=== PATIENT | female | born 1980 | race Caucasian/White ===

== ENCOUNTER 2019-12-14 08:23 | Outpatient (CLI) | payer OTHER ==
--- NOTE | 2019-12-14 11:23 | MRI ---
MRI CERVICAL SPINE WITHOUT CONTRAST: Date: 12/14/2019 INDICATION: Neck pain. Upper extremity weakness. FINDINGS: The cervical vertebra maintain normal height and alignment. The disc spaces are preserved. Vertebral body signal is normal. No evidence of significant disc bulge or disc protrusion at any of the cervical levels. There is no e vidence of central canal or foraminal stenosis. The cervical cord signal appears normal on T2 sequences. IMPRESSION: Unremarkable MRI of cervical spine. POS: OFF
== END 2019-12-14 08:24 | disposition home or self-care (01) ==
LOC: BICMRI 08:23
PROVIDERS: ATTEND Psychiatry & Neurology Neurology
DX: R53.1 Weakness (principal)
CPT/HCPCS: 72141

== ENCOUNTER 2023-03-15 12:17 | Inpatient (IN) | payer BC, MEDICARE ==
[2023-03-15] MEDS ORDERED: Magnesium 2 GM/50 ML BAG (IN WATER) ONE (12:45)
[2023-03-15] MEDS ORDERED: methylPREDNISolone Sod Succ/PF 125 MG/2 ML VIAL ONE (12:45)
[2023-03-15 13:05] LABS: Actual Bicarbonate (HCO3v) 33.5 mEq/L (22-28); Analyzer IN Cardio ER; Base Excess 6.9 mEq/L (-2.0 to +3.0); Calcium, Ionized (venous) 1.13 mmol/L (1.16-1.32); Chloride (VBG) 93 mmol/L (98-106); Hematocrit-VBG 35 % (36.0-47.0); Hemoglobin (Hb) 11.9 g/dL (11.7-15.5); Potassium (VBG) 5.53 mmol/L (3.70-5.30); Sodium 134 mmol/L (133-146); pH (venous) 7.382 (7.32-7.43)
[2023-03-15] MEDS ORDERED: LORazepam 2 MG/ML SYR.(CARPUJECT) ONE (13:09)
[2023-03-15] MEDS ORDERED: Albuterol 2.5 MG (0.5 mL) NEB ONE (13:11)
[2023-03-15] MEDS ORDERED: Albuterol 2.5 MG (3 mL) NEB ONE (13:12)
[2023-03-15] MEDS ORDERED: Ipratropium Bromide 2.5 ml Neb ONE (13:12)
[2023-03-15 13:21] LABS: #Basophils 0.1 thou/uL (0.0-0.2); #Monocytes 1.2 thou/uL (0.11-0.59); #Neutrophils 16.4 thou/uL (1.40-6.50); %Basophils 0.3 % (0.0-1.0); %Lymphocytes 6.9 % (21.0-51.0); %Monocytes 6.1 % (0.0-10.0); %Neutrophils 84.4 % (42.0-75.0); Hemoglobin 11.7 g/dL (12.0-16.0); Mean Corpuscular HGB CONC 32.5 g/dL (32.0-36.0); Mean Corpuscular Hemoglobin 30.9 pg (27.0-31.0); Mean Platelet Volume 11.9 fL (7.4-10.4); Platelet Count 304 10x3/uL (130-400); RBC Distribution Width 13.3 % (11.5-14.5); Red Blood Cell (RBC) Count 3.79 mill/uL (4.20-5.40); White Blood Cell (WBC) Count 19.5 10x3/uL (4.8-10.8)
[2023-03-15 13:49] LABS: ALT (SGPT) 23 U/L (8-55); AST (SGOT) 23 U/L (5-34); Albumin 3.8 g/dL (3.5-5.0); Alkaline Phosphatase 85 U/L (40-110); Anion Gap 13 mmol/L (10-20); BUN (Urea Nitrogen) 20 mg/dL (7.0-18.7); Bilirubin, Total 0.6 mg/dL (0.2-1.2); Calc. Creatinine Clearance 0 mL/min (70-130); Calcium 9.6 mg/dL (7.8-10.44); Carbon Dioxide 33 mmol/L (22-29); Chloride 94 mmol/L (98-107); Estimated GFR 120; Globulin 3.8 g/dL (2.4-3.5); Glucose 201 mg/dL (70-105); Lipase 14 U/L (8-78); Magnesium 1.9 mg/dL (1.6-2.6); Potassium 4.5 mmol/L (3.5-5.1); Protein, Total 7.6 g/dL (6.0-8.3); Sodium 135 mmol/L (136-145)
[2023-03-15 13:53] LABS: Troponin I 0.014 ng/mL (< 0.028)
[2023-03-15] MEDS ORDERED: Cefepime 2 GM VIAL ONE (14:23)
[2023-03-15] MEDS ORDERED: Sodium Chloride 0.9% 100 ML ONE (14:24)
[2023-03-15] MEDS ORDERED: Bisacodyl 5 MG TAB PO PRN (16:13)
[2023-03-15] MEDS ORDERED: Acetaminophen 650 MG Suppository PR PRN (16:13)
[2023-03-15] MEDS ORDERED: Acetaminophen 325 MG TAB PO PRN (16:13)
[2023-03-15] MEDS ORDERED: Ondansetron PF 4 MG/2 ML Vial IVP PRN (16:13)
[2023-03-15 16:25] VITALS: BMI 21.2
[2023-03-15] MEDS: Baclofen 10 MG TAB PER TUBE SCH (21:33)
[2023-03-15] MEDS: Cefepime 2 GM in Sodium Chloride 0.9% 100 ML IVPB SCH (21:56)
[2023-03-16 04:16] LABS: Actual Bicarbonate (HCO3a) 29.9 mEq/L (22-28); Analyzer IN Cardio ER; Base Excess (BEa) 3.7 mEq/L (-2.0 to +3.0); CO2 Tension 52.7 mmHg (35.0-45.0); Calcium, Ionized (arterial) 1.26 mmol/L (1.12-1.30); Carboxyhemoglobin (COHb) 0.9 gm% (0.0-3.0); Hematocrit-ABG 34 % (36.0-47.0); Hemoglobin (Hb) 11.4 g/dL (12.0-16.0); O2 Tension (PaO2), arterial 96.6 mmHg (80.0-100.0); Potassium - ABG Lab 4.45 mmol/L (3.70-5.30); pH, Arterial 7.372 (7.35-7.45)
[2023-03-16 04:24] LABS: Puncture Site LR
[2023-03-16 04:25] LABS: ALV-art Gradient 194.025 mmHg (0-20)
[2023-03-16] MEDS: Lisinopril 10 MG TAB PO SCH (09:18)
[2023-03-16] MEDS: Atorvastatin Calcium 40 MG TAB PO SCH (09:19)
[2023-03-16] MEDS: Sertraline 100 MG TAB PER TUBE SCH (09:19)
[2023-03-16] MEDS: Enoxaparin 40 MG (0.4 mL) SYRINGE SC SCH (09:19)
[2023-03-16] MEDS: Lansoprazole 15 MG/5 ML (BATCHED)UDCUP PER TUBE SCH (09:20)
[2023-03-16 09:22] LABS: #Basophils 0.1 thou/uL (0.0-0.2); #Monocytes 2.2 thou/uL (0.11-0.59); #Neutrophils 8.1 thou/uL (1.40-6.50); %Basophils 0.8 % (0.0-1.0); %Lymphocytes 15.3 % (21.0-51.0); %Monocytes 17.7 % (0.0-10.0); %Neutrophils 64.2 % (42.0-75.0); Hematocrit 41.3 % (36.0-47.0); Hemoglobin 13.2 g/dL (12.0-16.0); Mean Corpuscular Hemoglobin 31.6 pg (27.0-31.0); Mean Platelet Volume 12.9 fL (7.4-10.4); RBC Distribution Width 13.5 % (11.5-14.5); Red Blood Cell (RBC) Count 4.18 mill/uL (4.20-5.40); White Blood Cell (WBC) Count 12.6 10x3/uL (4.8-10.8)
[2023-03-16 09:35] LABS: Mean Corpuscular Volume 98.8 fl (78.0-98.0)
[2023-03-16 09:36] LABS: Platelet Count 91 10x3/uL (130-400)
[2023-03-16 10:01] LABS: Ovalocytes SLIGHT = 2-5 cells (100X) (0-1/hpf)
[2023-03-16 10:02] LABS: Platelet Adequacy Comment Platelets Decreased
[2023-03-16 10:34] LABS: Anion Gap 18 mmol/L (10-20); BUN (Urea Nitrogen) 16 mg/dL (7.0-18.7); Calc. Creatinine Clearance 146 mL/min (70-130); Calcium 9.3 mg/dL (7.8-10.44); Carbon Dioxide 30 mmol/L (22-29); Chloride 93 mmol/L (98-107); Estimated GFR 124; Glucose 91 mg/dL (70-105); Potassium 5.2 mmol/L (3.5-5.1); Sodium 136 mmol/L (136-145)
[2023-03-16] MEDS: Cefepime 2 GM in Sodium Chloride 0.9% 100 ML IVPB SCH (11:09)
[2023-03-16] MEDS ORDERED: Albuterol 2.5 MG (3 mL) NEB NEB SCH (14:45)
[2023-03-16] MEDS ORDERED: Insulin Regular 300 UNITS/3 ML VIAL IVP SCH (14:45)
[2023-03-16] MEDS ORDERED: Dextrose 50% Abboject 50 ML SYRINGE SLOW IVP SCH (14:45)
[2023-03-16] MEDS: Albuterol 2.5 MG (0.5 mL) NEB NEB SCH (18:47)
[2023-03-16] MEDS: Acetylcysteine 20% 200 MG/ML 30 ML VIAL INH SCH (18:47)
[2023-03-16] MEDS ORDERED: Polyethylene Glycol OPTH DROP 15 ML BOT EA EYE PRN (18:56)
[2023-03-16] MEDS: Baclofen 10 MG TAB PER TUBE SCH (20:57)
[2023-03-17] MEDS: Albuterol 2.5 MG (0.5 mL) NEB NEB SCH ×4 (01:17→18:28)
[2023-03-17] MEDS: Acetylcysteine 20% 200 MG/ML 30 ML VIAL INH SCH ×4 (01:18→18:32)
[2023-03-17] MEDS: Sertraline 100 MG TAB PER TUBE SCH (09:05)
[2023-03-17] MEDS: Lansoprazole 15 MG/5 ML (BATCHED)UDCUP PER TUBE SCH (09:05)
[2023-03-17] MEDS: Atorvastatin Calcium 40 MG TAB PO SCH (09:05)
[2023-03-17] MEDS: Enoxaparin 40 MG (0.4 mL) SYRINGE SC SCH (09:05)
[2023-03-17] MEDS: Loratadine 10 MG TAB PO SCH (09:05)
[2023-03-17] MEDS: Lisinopril 10 MG TAB PO SCH (09:05)
[2023-03-17 12:40] LABS: #Monocytes 1.3 thou/uL (0.11-0.59); %Basophils 0.2 % (0.0-1.0); %Eosinophils 0.2 % (0.0-10.0); %Lymphocytes 17.9 % (21.0-51.0); %Monocytes 11.1 % (0.0-10.0); %Neutrophils 69.3 % (42.0-75.0); Hematocrit 35.5 % (36.0-47.0); Hemoglobin 11.4 g/dL (12.0-16.0); Mean Corpuscular HGB CONC 32.1 g/dL (32.0-36.0); Mean Corpuscular Hemoglobin 30.7 pg (27.0-31.0); Mean Corpuscular Volume 95.7 fl (78.0-98.0); Mean Platelet Volume 11.5 fL (7.4-10.4); Platelet Count 292 10x3/uL (130-400); RBC Distribution Width 13.3 % (11.5-14.5); Red Blood Cell (RBC) Count 3.71 mill/uL (4.20-5.40); White Blood Cell (WBC) Count 11.6 10x3/uL (4.8-10.8)
[2023-03-17 13:05] LABS: Anion Gap 15 mmol/L (10-20); BUN (Urea Nitrogen) 12 mg/dL (7.0-18.7); Calc. Creatinine Clearance 157 mL/min (70-130); Calcium 9.9 mg/dL (7.8-10.44); Carbon Dioxide 32 mmol/L (22-29); Chloride 94 mmol/L (98-107); Estimated GFR 127; Glucose 66 mg/dL (70-105); Potassium 4.5 mmol/L (3.5-5.1); Sodium 136 mmol/L (136-145)
[2023-03-17] MEDS: Baclofen 10 MG TAB PER TUBE SCH (20:20)
[2023-03-17] MEDS ORDERED: ALPRAZolam 0.25 MG TAB PER TUBE SCH (20:45)
[2023-03-17] MEDS ORDERED: ALPRAZolam 0.25 MG TAB PO PRN (21:36)
[2023-03-18] MEDS: Acetylcysteine (MUCOMYST) 200 MG/ML (10 ML VIAL) NEB SCH ×3 (02:03→12:48)
[2023-03-18] MEDS: Albuterol 2.5 MG (0.5 mL) NEB NEB SCH ×3 (02:06→12:49)
[2023-03-18] MEDS: Acetylcysteine 20% 200 MG/ML 30 ML VIAL INH SCH (03:25)
[2023-03-18 04:43] VITALS: TEMP 97.7
[2023-03-18 07:57] LABS: #Basophils 0.1 thou/uL (0.0-0.2); #Monocytes 2.4 thou/uL (0.11-0.59); #Neutrophils 14.9 thou/uL (1.40-6.50); %Basophils 0.3 % (0.0-1.0); %Lymphocytes 6.6 % (21.0-51.0); %Monocytes 12.8 % (0.0-10.0); %Neutrophils 79.8 % (42.0-75.0); Hematocrit 37.8 % (36.0-47.0); Hemoglobin 11.9 g/dL (12.0-16.0); Mean Corpuscular HGB CONC 31.5 g/dL (32.0-36.0); Mean Corpuscular Hemoglobin 30.5 pg (27.0-31.0); Mean Corpuscular Volume 96.9 fl (78.0-98.0); Mean Platelet Volume 11.4 fL (7.4-10.4); Platelet Count 278 10x3/uL (130-400); RBC Distribution Width 13.5 % (11.5-14.5); White Blood Cell (WBC) Count 18.7 10x3/uL (4.8-10.8)
[2023-03-18 08:32] LABS: Anion Gap 19 mmol/L (10-20); BUN (Urea Nitrogen) 11 mg/dL (7.0-18.7); Calc. Creatinine Clearance 157 mL/min (70-130); Calcium 10.1 mg/dL (7.8-10.44); Carbon Dioxide 29 mmol/L (22-29); Chloride 96 mmol/L (98-107); Estimated GFR 127; Glucose 75 mg/dL (70-105); Potassium 4.6 mmol/L (3.5-5.1); Sodium 139 mmol/L (136-145)
[2023-03-18] MEDS: Atorvastatin Calcium 40 MG TAB PO SCH (08:53)
[2023-03-18] MEDS: Sertraline 100 MG TAB PER TUBE SCH (08:53)
[2023-03-18] MEDS: Enoxaparin 40 MG (0.4 mL) SYRINGE SC SCH (08:53)
[2023-03-18] MEDS: Lisinopril 10 MG TAB PO SCH (08:53)
[2023-03-18] MEDS: Loratadine 10 MG TAB PO SCH ×2 (08:53→08:56)
[2023-03-18] MEDS: Lansoprazole 15 MG/5 ML (BATCHED)UDCUP PER TUBE SCH (08:53)
== END 2023-03-18 13:17 | disposition home or self-care (01) | DRG 189 ==
LOC: ERS 12:17 → IMCU/EMU 15:49
PROVIDERS: ADMIT Internal Medicine; ATTEND Internal Medicine
PROC: 4A043R1 Measurement of Venous Saturation, Peripheral, Percutaneous Approach (ICD-10-PCS; 2023-03-15)
PROC: 5A09457 Assistance with Respiratory Ventilation, 24-96 Consecutive Hours, Continuous Positive Airway Pressure (ICD-10-PCS; 2023-03-15)
PROC: 4A033R1 Measurement of Arterial Saturation, Peripheral, Percutaneous Approach (ICD-10-PCS; principal; 2023-03-16)
DX: J96.21 Acute and chronic respiratory failure with hypoxia (principal); G12.21 Amyotrophic lateral sclerosis; E87.1 Hypo-osmolality and hyponatremia; J96.12 Chronic respiratory failure with hypercapnia; E87.5 Hyperkalemia; E03.9 Hypothyroidism, unspecified; E10.9 Type 1 diabetes mellitus without complications; F41.9 Anxiety disorder, unspecified; Z98.890 Other specified postprocedural states; Z79.899 Other long term (current) drug therapy
CPT/HCPCS: 36415; 71045; 80048; 80053; 82805; 83605; 83690; 83735; 83880; 84145; 84484; 85025; 87040; 93005; 94660; 94760; 96365; 96367; 96374; 96375; J0132; J0692; J1650; J1815; J2060; J2930; J3475; J3490; J7608; J7611; J7999

== ENCOUNTER 2023-03-20 18:42 | Inpatient (IN) | payer BC, MEDICARE ==
[~2023-03-20 18:42] MED LIST: Iopamidol-370 76% 500 ML MDV (1 ML CHARGE) ONE
[2023-03-20] MEDS ORDERED: KETAMINE 100 MG/ML (5ML VIAL) ONE (18:50)
[2023-03-20] MEDS ORDERED: Rocuronium Bromide 10 MG/ML (10ML VIAL) ONE ×2 (18:51→18:59)
[2023-03-20] MEDS ORDERED: NOREPINEPHRINE 8 MG/250 ML-D5W 250 ML ONE (19:09)
[2023-03-20 19:14] LABS: #Basophils 0.1 thou/uL (0.0-0.2); #Eosinphils 0.1 thou/uL (0.0-0.7); #Neutrophils 13.7 thou/uL (1.40-6.50); %Basophils 0.4 % (0.0-1.0); %Eosinophils 0.6 % (0.0-10.0); %Lymphocytes 20.2 % (21.0-51.0); %Monocytes 10.1 % (0.0-10.0); %Neutrophils 67.3 % (42.0-75.0); Hemoglobin 11.1 g/dL (12.0-16.0); Mean Corpuscular HGB CONC 30.8 g/dL (32.0-36.0); Mean Corpuscular Hemoglobin 30.5 pg (27.0-31.0); Mean Corpuscular Volume 98.9 fl (78.0-98.0); Mean Platelet Volume 11.1 fL (7.4-10.4); Platelet Count 449 10x3/uL (130-400); RBC Distribution Width 13.8 % (11.5-14.5); Red Blood Cell (RBC) Count 3.64 mill/uL (4.20-5.40); White Blood Cell (WBC) Count 20.3 10x3/uL (4.8-10.8)
[2023-03-20 19:27] LABS: Actual Bicarbonate (HCO3v) 38.6 mEq/L (22-28); Analyzer IN Cardio ER; Base Excess 7.7 mEq/L (-2.0 to +3.0); Chloride (VBG) 95 mmol/L (98-106); Hematocrit-VBG 35 % (36.0-47.0); Potassium (VBG) 4.35 mmol/L (3.70-5.30); Sodium 141 mmol/L (133-146); pH (venous) 7.216 (7.32-7.43)
[2023-03-20 19:29] LABS: Actual Bicarbonate (HCO3a) 38.9 mEq/L (22-28); Analyzer IN Cardio ER; Base Excess (BEa) 11.5 mEq/L (-2.0 to +3.0); Calcium, Ionized (arterial) 1.29 mmol/L (1.12-1.30); Carboxyhemoglobin (COHb) 1.4 gm% (0.0-3.0); Hematocrit-ABG 33 % (36.0-47.0); Hemoglobin (Hb) 11.1 g/dL (12.0-16.0); O2 Tension (PaO2), arterial 275.2 mmHg (80.0-100.0); Potassium - ABG Lab 4.16 mmol/L (3.70-5.30)
[2023-03-20 19:40] LABS: CO2 Tension 67.3 mmHg (35.0-45.0)
[2023-03-20 19:40] LABS: ALT (SGPT) 15 U/L (8-55); AST (SGOT) 16 U/L (5-34); Albumin 3.6 g/dL (3.5-5.0); Alkaline Phosphatase 88 U/L (40-110); BUN (Urea Nitrogen) 16 mg/dL (7.0-18.7); Bilirubin, Total 0.5 mg/dL (0.2-1.2); Calc. Creatinine Clearance 0 mL/min (70-130); Calcium 10.3 mg/dL (7.8-10.44); Estimated GFR 124; Globulin 3.9 g/dL (2.4-3.5); Glucose 110 mg/dL (70-105); Protein, Total 7.5 g/dL (6.0-8.3)
[2023-03-20 19:41] LABS: ALV-art Gradient 353.675 mmHg (0-20); Puncture Site RRA
[2023-03-20 19:41] LABS: Troponin I 0.014 ng/mL (< 0.028)
[2023-03-20] MEDS ORDERED: Dexmedetomidine 400 MCG, Admixture Fee 1 EACH in Sodium Chloride 0.9% 96 ML IVPB SCH (19:45)
[2023-03-20 19:56] LABS: Bacteria/HPF None Seen HPF (None Seen); Bilirubin Negative (Negative); Blood, Urine Negative (Negative); CAUTI Indications for Culture Alt mental st,lethar; Clarity Clear (Clear); Glucose, Urine (Dipstick) Normal (Negative); Ketone, Urine Negative (Negative); Leukocyte Negative Leu/uL (Negative); Nitrite Negative (Negative); Protein, Urine (Dipstick) 100 mg/dL (Neg-Trace); RBC/HPF 0-3 HPF (0-3); Specific Gravity, Urine 1.012 (1.002-1.036); Squamous Epithelial 0-3 HPF (0-3); Urobilinogen 3 mg/dL (Less than 2); WBC/HPF 0-3 HPF (0-3)
[2023-03-20 19:56] LABS: Chloride 94 mmol/L (98-107); Potassium 4.4 mmol/L (3.5-5.1); Sodium 139 mmol/L (136-145)
[2023-03-20 19:57] LABS: Urine Culture Reflex No No
[2023-03-20 20:00] LABS: Anion Gap 15 mmol/L (10-20)
[2023-03-20 20:15] LABS: Carbon Dioxide 35 mmol/L (22-29)
[2023-03-20] MEDS ORDERED: metroNIDAZOLE 500 MG (100 mL) BAG ONE (20:50)
[2023-03-20] MEDS ORDERED: Sodium Chloride 0.9% 100 ML ONE (20:51)
[2023-03-20] MEDS ORDERED: cefTRIAXone (ROCEPHIN) 1 GM VIAL ONE (20:51)
[2023-03-20] MEDS ORDERED: Acetaminophen 325 MG (10.15 ML) UDCUP PO PRN (23:41)
[2023-03-20] MEDS ORDERED: NOREPINEPHRINE 8 MG/250 ML-D5W 250 ML IVPB PRN (23:41)
[2023-03-20] MEDS ORDERED: Electrolyte Replacement Protocol 1 EACH IVPB PRN (23:41)
[2023-03-20] MEDS ORDERED: Ipratropium/Albuterol 3 ML NEB NEB PRN (23:41)
[2023-03-20] MEDS ORDERED: Acetaminophen 650 MG Suppository PR PRN (23:41)
[2023-03-20] MEDS ORDERED: Fentanyl CADD 100 ML IV SCH (23:45)
[2023-03-20] MEDS ORDERED: Propofol BOLUS 1,000 MG/100 ML VIAL IV PRN (23:45)
[2023-03-20] MEDS ORDERED: Fentanyl BOLUS 250 ML IVPB PRN (23:45)
[2023-03-20] MEDS ORDERED: DISCONTINUE PREVIOUS NARCOTIC PAIN MEDICATIONS AND BENZODIAZEPINES FS SCH (23:45)
[2023-03-20] MEDS ORDERED: Ventilator Sedation Protocol 1 EACH FS SCH (23:45)
[2023-03-20] MEDS ORDERED: Propofol 1,000 MG/100 ML VIAL IV PRN (23:45)
[2023-03-21] MEDS ORDERED: Vancomycin (BATCH) 1.25 GM in Premix 1 BAG IVPB SCH ×2 (02:30→09:00)
[2023-03-21] MEDS: Lactated Ringer's 1,000 ML IV SCH ×2 (02:49→07:25)
[2023-03-21] MEDS ORDERED: HumaLOG 300 UNITS/3 ML VIAL SC PRN ×2 (02:59)
[2023-03-21] MEDS ORDERED: Dextrose 5% in Water 1,000 ML IV PRN (02:59)
[2023-03-21] MEDS ORDERED: Dextrose 50% Abboject 50 ML SYRINGE SLOW IVP PRN (02:59)
[2023-03-21] MEDS ORDERED: Glucagon 1 MG/ML KIT IM PRN (02:59)
[2023-03-21] MEDS: Dextrose 5%-Lactated Ringers 1,000 ML IV SCH ×2 (03:00→16:12)
[2023-03-21 07:02] LABS: #Basophils 0.1 thou/uL (0.0-0.2); #Monocytes 1.2 thou/uL (0.11-0.59); #Neutrophils 8.7 thou/uL (1.40-6.50); %Basophils 0.4 % (0.0-1.0); %Eosinophils 0.2 % (0.0-10.0); %Lymphocytes 16.9 % (21.0-51.0); %Monocytes 10.3 % (0.0-10.0); %Neutrophils 71.5 % (42.0-75.0); Hematocrit 29.2 % (36.0-47.0); Hemoglobin 9.2 g/dL (12.0-16.0); Mean Corpuscular HGB CONC 31.5 g/dL (32.0-36.0); Mean Corpuscular Hemoglobin 30.5 pg (27.0-31.0); Mean Corpuscular Volume 96.7 fl (78.0-98.0); Mean Platelet Volume 11.7 fL (7.4-10.4); RBC Distribution Width 13.6 % (11.5-14.5); Red Blood Cell (RBC) Count 3.02 mill/uL (4.20-5.40); White Blood Cell (WBC) Count 12.1 10x3/uL (4.8-10.8)
[2023-03-21 07:26] LABS: Platelet Count 339 10x3/uL (130-400)
[2023-03-21 07:52] LABS: Anion Gap 15 mmol/L (10-20); BUN (Urea Nitrogen) 14 mg/dL (7.0-18.7); Calc. Creatinine Clearance 169 mL/min (70-130); Calcium 9.4 mg/dL (7.8-10.44); Carbon Dioxide 33 mmol/L (22-29); Chloride 97 mmol/L (98-107); Estimated GFR 127; Glucose 71 mg/dL (70-105); Potassium 3.5 mmol/L (3.5-5.1); Sodium 141 mmol/L (136-145)
[2023-03-21] MEDS: Cefepime 2 GM in Sodium Chloride 0.9% 100 ML IVPB SCH ×2 (08:37→20:10)
[2023-03-21] MEDS: Famotidine/PF 20 mg/2ml Vial SLOW IVP SCH ×2 (08:37→20:10)
[2023-03-21] MEDS: Vancomycin 1 GM in Premix 1 BAG IVPB SCH ×2 (09:27→17:21)
[2023-03-21] MEDS ORDERED: Potassium Chloride 40 MEQ in Premix 1 BAG IVPB SCH (14:00)
[2023-03-21] MEDS ORDERED: Potassium Chloride 20 MEQ in Premix 1 BAG IVPB SCH (14:00)
[2023-03-21] MEDS: Lorazepam 2 MG/ML VIAL SLOW IVP PRN ×2 (14:47→20:10)
[2023-03-21 20:12] LABS: Potassium 4.1 mmol/L (3.5-5.1)
[2023-03-21] MEDS ORDERED: Ibuprofen 600 MG TAB PO SCH (21:30)
[2023-03-21] MEDS ORDERED: Lactated Ringer's 500 ML IV SCH (23:45)
[2023-03-22 01:47] LABS: Vancomycin, Trough 35.9 ug/mL
[2023-03-22] MEDS ORDERED: [UNRECOGNIZED DRUG - REMARK] FS SCH (02:00)
[2023-03-22 04:14] LABS: #Basophils 0.1 thou/uL (0.0-0.2); #Monocytes 1.4 thou/uL (0.11-0.59); #Neutrophils 7.3 thou/uL (1.40-6.50); %Basophils 0.5 % (0.0-1.0); %Eosinophils 0.4 % (0.0-10.0); %Monocytes 13.5 % (0.0-10.0); %Neutrophils 68.4 % (42.0-75.0); Hematocrit 23.3 % (36.0-47.0); Hemoglobin 7.6 g/dL (12.0-16.0); Mean Corpuscular HGB CONC 32.6 g/dL (32.0-36.0); Mean Corpuscular Hemoglobin 30.6 pg (27.0-31.0); Mean Platelet Volume 11.2 fL (7.4-10.4); Platelet Count 249 10x3/uL (130-400); Red Blood Cell (RBC) Count 2.48 mill/uL (4.20-5.40); White Blood Cell (WBC) Count 10.7 10x3/uL (4.8-10.8)
[2023-03-22 04:42] LABS: Anion Gap 12 mmol/L (10-20); BUN (Urea Nitrogen) 14 mg/dL (7.0-18.7); Calc. Creatinine Clearance 147 mL/min (70-130); Carbon Dioxide 29 mmol/L (22-29); Chloride 101 mmol/L (98-107); Estimated GFR 122; Glucose 186 mg/dL (70-105); Potassium 3.2 mmol/L (3.5-5.1); Sodium 139 mmol/L (136-145)
[2023-03-22] MEDS: Dextrose 5%-Lactated Ringers 1,000 ML IV SCH ×2 (05:46→20:05)
[2023-03-22 06:18] LABS: #Basophils 0.1 thou/uL (0.0-0.2); #Eosinphils 0.1 thou/uL (0.0-0.7); #Monocytes 1.2 thou/uL (0.11-0.59); #Neutrophils 7.1 thou/uL (1.40-6.50); %Basophils 0.5 % (0.0-1.0); %Eosinophils 0.5 % (0.0-10.0); %Lymphocytes 16.2 % (21.0-51.0); %Monocytes 11.7 % (0.0-10.0); %Neutrophils 69.4 % (42.0-75.0); Hematocrit 23.9 % (36.0-47.0); Hemoglobin 7.7 g/dL (12.0-16.0); Mean Corpuscular HGB CONC 32.2 g/dL (32.0-36.0); Mean Corpuscular Volume 96.4 fl (78.0-98.0); Mean Platelet Volume 11.5 fL (7.4-10.4); Platelet Count 250 10x3/uL (130-400); RBC Distribution Width 13.8 % (11.5-14.5); Red Blood Cell (RBC) Count 2.48 mill/uL (4.20-5.40); White Blood Cell (WBC) Count 10.2 10x3/uL (4.8-10.8)
[2023-03-22 06:25] LABS: INR-International Normal Ratio 1.6; Prothrombin Time 18.8 sec (12.0-14.7)
[2023-03-22 06:26] LABS: PTT 42.4 sec (22.9-36.1)
[2023-03-22] MEDS: Potassium Chloride 20 MEQ in Premix 1 BAG IVPB SCH ×2 (08:15→08:16)
[2023-03-22] MEDS: Famotidine/PF 20 mg/2ml Vial SLOW IVP SCH ×2 (08:16→20:06)
[2023-03-22] MEDS: Cefepime 2 GM in Sodium Chloride 0.9% 100 ML IVPB SCH ×2 (08:16→20:05)
[2023-03-22] MEDS ORDERED: Bupivacaine PF 0.5% 30 ML VIAL ONE (09:26)
[2023-03-22] MEDS ORDERED: EPINEPHrine 1 MG/ML VIAL ONE (09:26)
[2023-03-22] MEDS ORDERED: Lidocaine 2% PF 5 ML VIAL ONE (09:26)
[2023-03-22] MEDS ORDERED: Midazolam HCl 2 mg/2 ml Vial ONE (10:00)
[2023-03-22] MEDS ORDERED: Rocuronium Bromide 10 MG/ML (10ML VIAL) ONE (10:02)
[2023-03-22] MEDS ORDERED: PHENYLEPHRINE-NS 100 MCG/ML 10 ML SYRINGE ONE (10:39)
[2023-03-22 15:06] LABS: Potassium 3.8 mmol/L (3.5-5.1)
[2023-03-22 15:10] LABS: Vancomycin, Random 18.8 ug/mL (See Comment)
[2023-03-22] MEDS: Albuterol 2.5 MG (3 mL) NEB NEB SCH (18:29)
[2023-03-22] MEDS: Acetylcysteine (MUCOMYST) 200 MG/ML (10 ML VIAL) NEB SCH (18:35)
[2023-03-22] MEDS: Vancomycin HCl 750 MG in Sodium Chloride 0.9% 250 ML 250 ML IVPB SCH (18:47)
[2023-03-22] MEDS: Morphine 2 MG/ML VIAL SLOW IVP PRN (19:06)
[2023-03-23] MEDS: Vancomycin HCl 750 MG in Sodium Chloride 0.9% 250 ML 250 ML IVPB SCH (04:36)
[2023-03-23 04:54] LABS: #Eosinphils 0.1 thou/uL (0.0-0.7); #Monocytes 1.3 thou/uL (0.11-0.59); #Neutrophils 10.8 thou/uL (1.40-6.50); %Basophils 0.3 % (0.0-1.0); %Eosinophils 0.4 % (0.0-10.0); %Lymphocytes 12.4 % (21.0-51.0); %Monocytes 9.5 % (0.0-10.0); %Neutrophils 76.2 % (42.0-75.0); Hematocrit 24.8 % (36.0-47.0); Mean Corpuscular HGB CONC 32.3 g/dL (32.0-36.0); Mean Corpuscular Hemoglobin 30.8 pg (27.0-31.0); Mean Corpuscular Volume 95.4 fl (78.0-98.0); Mean Platelet Volume 11.1 fL (7.4-10.4); Platelet Count 238 10x3/uL (130-400); RBC Distribution Width 14.3 % (11.5-14.5); White Blood Cell (WBC) Count 14.1 10x3/uL (4.8-10.8)
[2023-03-23 05:15] LABS: Anion Gap 12 mmol/L (10-20); BUN (Urea Nitrogen) 11 mg/dL (7.0-18.7); Calc. Creatinine Clearance 164 mL/min (70-130); Calcium 8.8 mg/dL (7.8-10.44); Carbon Dioxide 24 mmol/L (22-29); Chloride 106 mmol/L (98-107); Estimated GFR 125; Glucose 139 mg/dL (70-105); Potassium 3.9 mmol/L (3.5-5.1); Sodium 138 mmol/L (136-145)
[2023-03-23] MEDS: Famotidine/PF 20 mg/2ml Vial SLOW IVP SCH ×2 (08:02→20:19)
[2023-03-23] MEDS: Sertraline 100 MG TAB PO SCH (08:02)
[2023-03-23] MEDS: Cefepime 2 GM in Sodium Chloride 0.9% 100 ML IVPB SCH ×2 (08:03→20:19)
[2023-03-23] MEDS: Morphine 2 MG/ML VIAL SLOW IVP PRN (08:04)
[2023-03-23] MEDS: Acetylcysteine (MUCOMYST) 200 MG/ML (10 ML VIAL) NEB SCH ×2 (08:05→18:18)
[2023-03-23] MEDS: Albuterol 2.5 MG (3 mL) NEB NEB SCH ×2 (08:05→18:18)
[2023-03-23] MEDS ORDERED: Lisinopril 10 MG TAB PO SCH ×2 (09:00)
[2023-03-23] MEDS: Dextrose 5%-Lactated Ringers 1,000 ML IV SCH (10:30)
[2023-03-23] MEDS: Baclofen 10 MG TAB PER TUBE SCH (20:19)
[2023-03-23] MEDS: Melatonin 3 MG TAB PO SCH (22:15)
[2023-03-24] MEDS: Dextrose 5%-Lactated Ringers 1,000 ML IV SCH ×2 (01:04)
[2023-03-24 05:20] LABS: #Eosinphils 0.1 thou/uL (0.0-0.7); #Monocytes 0.7 thou/uL (0.11-0.59); #Neutrophils 5.9 thou/uL (1.40-6.50); %Basophils 0.2 % (0.0-1.0); %Eosinophils 1.4 % (0.0-10.0); %Lymphocytes 23.8 % (21.0-51.0); %Neutrophils 65.7 % (42.0-75.0); Hematocrit 20.8 % (36.0-47.0); Hemoglobin 6.7 g/dL (12.0-16.0); Mean Corpuscular HGB CONC 32.2 g/dL (32.0-36.0); Mean Corpuscular Hemoglobin 30.3 pg (27.0-31.0); Mean Corpuscular Volume 94.1 fl (78.0-98.0); Mean Platelet Volume 12.1 fL (7.4-10.4); Platelet Count 203 10x3/uL (130-400); RBC Distribution Width 14.2 % (11.5-14.5); Red Blood Cell (RBC) Count 2.21 mill/uL (4.20-5.40)
[2023-03-24 05:43] LABS: Anion Gap 14 mmol/L (10-20); BUN (Urea Nitrogen) 10 mg/dL (7.0-18.7); Calc. Creatinine Clearance 170 mL/min (70-130); Calcium 8.3 mg/dL (7.8-10.44); Carbon Dioxide 23 mmol/L (22-29); Chloride 105 mmol/L (98-107); Estimated GFR 127; Glucose 101 mg/dL (70-105); Potassium 3.6 mmol/L (3.5-5.1); Sodium 138 mmol/L (136-145)
[2023-03-24] MEDS: Albuterol 2.5 MG (3 mL) NEB NEB SCH ×2 (07:38→17:59)
[2023-03-24] MEDS: Acetylcysteine (MUCOMYST) 200 MG/ML (10 ML VIAL) NEB SCH ×2 (07:38→17:59)
[2023-03-24] MEDS: Sertraline 100 MG TAB PO SCH (09:01)
[2023-03-24] MEDS: Scopolamine 1 mg/72 hour Patch TD SCH (09:01)
[2023-03-24] MEDS: Famotidine/PF 20 mg/2ml Vial SLOW IVP SCH ×2 (09:03→20:33)
[2023-03-24] MEDS: Cefepime 2 GM in Sodium Chloride 0.9% 100 ML IVPB SCH ×2 (09:03→20:32)
[2023-03-24] MEDS ORDERED: Acetaminophen 650 MG/20.3 ML UDCUP PO PRN (20:30)
[2023-03-24] MEDS: Lorazepam 2 MG/ML VIAL SLOW IVP PRN (20:37)
[2023-03-24] MEDS: Baclofen 10 MG TAB PER TUBE SCH (21:26)
[2023-03-24] MEDS: Melatonin 3 MG TAB PO SCH (21:26)
[2023-03-25 04:52] LABS: #Eosinphils 0.1 thou/uL (0.0-0.7); #Monocytes 0.8 thou/uL (0.11-0.59); #Neutrophils 7.7 thou/uL (1.40-6.50); %Basophils 0.2 % (0.0-1.0); %Eosinophils 1.2 % (0.0-10.0); %Lymphocytes 18.5 % (21.0-51.0); %Monocytes 7.6 % (0.0-10.0); %Neutrophils 71.8 % (42.0-75.0); Hematocrit 23.6 % (36.0-47.0); Hemoglobin 7.6 g/dL (12.0-16.0); Mean Corpuscular HGB CONC 32.2 g/dL (32.0-36.0); Mean Corpuscular Hemoglobin 30.4 pg (27.0-31.0); Mean Corpuscular Volume 94.4 fl (78.0-98.0); Mean Platelet Volume 11.8 fL (7.4-10.4); Platelet Count 203 10x3/uL (130-400); RBC Distribution Width 15.8 % (11.5-14.5); White Blood Cell (WBC) Count 10.8 10x3/uL (4.8-10.8)
[2023-03-25 05:14] LABS: Anion Gap 10 mmol/L (10-20); BUN (Urea Nitrogen) 12 mg/dL (7.0-18.7); Calc. Creatinine Clearance 188 mL/min (70-130); Calcium 8.3 mg/dL (7.8-10.44); Carbon Dioxide 26 mmol/L (22-29); Chloride 109 mmol/L (98-107); Estimated GFR 127; Glucose 101 mg/dL (70-105); Potassium 3.9 mmol/L (3.5-5.1); Sodium 141 mmol/L (136-145)
[2023-03-25] MEDS: Acetylcysteine (MUCOMYST) 200 MG/ML (10 ML VIAL) NEB SCH ×2 (07:39→18:42)
[2023-03-25] MEDS: Albuterol 2.5 MG (3 mL) NEB NEB SCH ×2 (07:39→18:41)
[2023-03-25] MEDS: Famotidine/PF 20 mg/2ml Vial SLOW IVP SCH ×2 (08:07→20:01)
[2023-03-25] MEDS: Sertraline 100 MG TAB PO SCH (08:07)
[2023-03-25] MEDS: Cefepime 2 GM in Sodium Chloride 0.9% 100 ML IVPB SCH ×2 (08:07→20:00)
[2023-03-25] MEDS: Dextrose 5%-Lactated Ringers 1,000 ML IV SCH ×2 (08:13→16:30)
[2023-03-25] MEDS: Melatonin 3 MG TAB PO SCH (20:00)
[2023-03-25] MEDS: Baclofen 10 MG TAB PER TUBE SCH (20:01)
[2023-03-26] MEDS: Dextrose 5%-Lactated Ringers 1,000 ML IV SCH ×2 (05:46→17:35)
[2023-03-26] MEDS: Albuterol 2.5 MG (3 mL) NEB NEB SCH ×2 (07:04→18:53)
[2023-03-26] MEDS: Acetylcysteine (MUCOMYST) 200 MG/ML (10 ML VIAL) NEB SCH ×2 (07:06→18:51)
[2023-03-26 07:14] LABS: #Eosinphils 0.1 thou/uL (0.0-0.7); #Monocytes 0.8 thou/uL (0.11-0.59); #Neutrophils 5.1 thou/uL (1.40-6.50); %Basophils 0.3 % (0.0-1.0); %Eosinophils 1.4 % (0.0-10.0); %Lymphocytes 29.4 % (21.0-51.0); %Monocytes 8.7 % (0.0-10.0); %Neutrophils 58.9 % (42.0-75.0); Hematocrit 24.8 % (36.0-47.0); Hemoglobin 7.9 g/dL (12.0-16.0); Mean Corpuscular HGB CONC 31.9 g/dL (32.0-36.0); Mean Corpuscular Volume 94.3 fl (78.0-98.0); Mean Platelet Volume 12.3 fL (7.4-10.4); Platelet Count 217 10x3/uL (130-400); RBC Distribution Width 15.2 % (11.5-14.5); Red Blood Cell (RBC) Count 2.63 mill/uL (4.20-5.40); White Blood Cell (WBC) Count 8.7 10x3/uL (4.8-10.8)
[2023-03-26 07:55] LABS: Anion Gap 13 mmol/L (10-20); BUN (Urea Nitrogen) 13 mg/dL (7.0-18.7); Calc. Creatinine Clearance 197 mL/min (70-130); Calcium 8.8 mg/dL (7.8-10.44); Carbon Dioxide 22 mmol/L (22-29); Chloride 108 mmol/L (98-107); Estimated GFR 127; Glucose 138 mg/dL (70-105); Potassium 4.2 mmol/L (3.5-5.1); Sodium 139 mmol/L (136-145)
[2023-03-26] MEDS: Sertraline 100 MG TAB PO SCH (10:09)
[2023-03-26] MEDS: Famotidine/PF 20 mg/2ml Vial SLOW IVP SCH ×2 (10:09→21:08)
[2023-03-26] MEDS ORDERED: Amoxicillin/Potassium Clav 875 MG TAB PO SCH (12:30)
[2023-03-26 12:41] VITALS: BMI 23.4
[2023-03-26] MEDS: Melatonin 3 MG TAB PO SCH (21:07)
[2023-03-26] MEDS: Baclofen 10 MG TAB PER TUBE SCH (21:07)
[2023-03-26] MEDS: Amoxicillin/Potassium Clav 875 MG TAB PO SCH (21:07)
[2023-03-27 04:21] LABS: #Basophils 0.1 thou/uL (0.0-0.2); #Eosinphils 0.1 thou/uL (0.0-0.7); #Monocytes 1.1 thou/uL (0.11-0.59); #Neutrophils 6.2 thou/uL (1.40-6.50); %Basophils 0.6 % (0.0-1.0); %Lymphocytes 27.8 % (21.0-51.0); %Monocytes 10.4 % (0.0-10.0); %Neutrophils 58.1 % (42.0-75.0); Hematocrit 24.8 % (36.0-47.0); Hemoglobin 7.9 g/dL (12.0-16.0); Mean Corpuscular HGB CONC 31.9 g/dL (32.0-36.0); Mean Corpuscular Hemoglobin 29.6 pg (27.0-31.0); Mean Corpuscular Volume 92.9 fl (78.0-98.0); Mean Platelet Volume 12.9 fL (7.4-10.4); Platelet Count 238 10x3/uL (130-400); RBC Distribution Width 14.7 % (11.5-14.5); Red Blood Cell (RBC) Count 2.67 mill/uL (4.20-5.40); White Blood Cell (WBC) Count 10.6 10x3/uL (4.8-10.8)
[2023-03-27 05:44] LABS: Anion Gap 13 mmol/L (10-20); BUN (Urea Nitrogen) 15 mg/dL (7.0-18.7); Calc. Creatinine Clearance 199 mL/min (70-130); Calcium 8.8 mg/dL (7.8-10.44); Carbon Dioxide 24 mmol/L (22-29); Chloride 103 mmol/L (98-107); Estimated GFR 127; Glucose 82 mg/dL (70-105); Potassium 4.7 mmol/L (3.5-5.1); Sodium 135 mmol/L (136-145)
[2023-03-27] MEDS: Acetylcysteine (MUCOMYST) 200 MG/ML (10 ML VIAL) NEB SCH ×2 (07:27→18:51)
[2023-03-27] MEDS: Albuterol 2.5 MG (3 mL) NEB NEB SCH ×2 (07:27→18:50)
[2023-03-27] MEDS: Scopolamine 1 mg/72 hour Patch TD SCH (12:22)
[2023-03-27] MEDS: Famotidine/PF 20 mg/2ml Vial SLOW IVP SCH ×2 (12:23→20:34)
[2023-03-27] MEDS: Amoxicillin/Potassium Clav 875 MG TAB PO SCH ×2 (12:23→20:35)
[2023-03-27] MEDS: Sertraline 100 MG TAB PO SCH (12:24)
[2023-03-27] MEDS ORDERED: Glycopyrrolate 0.4 MG/ 2 ML VIAL SLOW IVP PRN (12:59)
[2023-03-27] MEDS ORDERED: GLYCOPYRROLATE/PF 0.2 MG/ML VIAL SLOW IVP PRN (13:22)
[2023-03-27] MEDS: Melatonin 3 MG TAB PO SCH (20:34)
[2023-03-27] MEDS: Baclofen 10 MG TAB PER TUBE SCH (20:35)
[2023-03-27] MEDS ORDERED: Enoxaparin 40 MG (0.4 mL) SYRINGE SC SCH (21:00)
[2023-03-27] MEDS ORDERED: Sodium Chloride 0.9% 500 ML IVPB SCH (21:30)
[2023-03-27] MEDS ORDERED: Labetalol HCl 100 MG/20 ML VIAL ONE (21:34)
[2023-03-27] MEDS ORDERED: Labetalol HCl 100 MG/20 ML VIAL SLOW IVP SCH (21:45)
[2023-03-28 06:46] LABS: #Basophils 0.1 thou/uL (0.0-0.2); #Eosinphils 0.1 thou/uL (0.0-0.7); #Neutrophils 5.5 thou/uL (1.40-6.50); %Basophils 0.6 % (0.0-1.0); %Eosinophils 0.6 % (0.0-10.0); %Monocytes 9.9 % (0.0-10.0); %Neutrophils 58.1 % (42.0-75.0); Hematocrit 28.1 % (36.0-47.0); Hemoglobin 8.7 g/dL (12.0-16.0); Mean Corpuscular Hemoglobin 29.3 pg (27.0-31.0); Mean Corpuscular Volume 94.6 fl (78.0-98.0); Mean Platelet Volume 12.8 fL (7.4-10.4); Platelet Count 255 10x3/uL (130-400); RBC Distribution Width 14.6 % (11.5-14.5); Red Blood Cell (RBC) Count 2.97 mill/uL (4.20-5.40); White Blood Cell (WBC) Count 9.6 10x3/uL (4.8-10.8)
[2023-03-28 07:16] LABS: Anion Gap 14 mmol/L (10-20); BUN (Urea Nitrogen) 16 mg/dL (7.0-18.7); Calc. Creatinine Clearance 177 mL/min (70-130); Calcium 9.2 mg/dL (7.8-10.44); Carbon Dioxide 23 mmol/L (22-29); Chloride 103 mmol/L (98-107); Estimated GFR 124; Glucose 131 mg/dL (70-105); Potassium 4.2 mmol/L (3.5-5.1); Sodium 136 mmol/L (136-145)
[2023-03-28] MEDS: Albuterol 2.5 MG (3 mL) NEB NEB SCH (07:32)
[2023-03-28] MEDS: Acetylcysteine (MUCOMYST) 200 MG/ML (10 ML VIAL) NEB SCH (07:37)
[2023-03-28] MEDS: Sertraline 100 MG TAB PO SCH (08:12)
[2023-03-28] MEDS: Famotidine/PF 20 mg/2ml Vial SLOW IVP SCH (08:12)
[2023-03-28 10:14] VITALS: BP 109/59
[2023-03-28 11:53] VITALS: TEMP 98.8
== END 2023-03-28 11:45 | disposition home or self-care (01) | DRG 4 ==
LOC: ERS 18:42 → CCU 03-21 01:21
PROVIDERS: ADMIT Student in an Organized Health Care Education/Training Program; ATTEND Internal Medicine
PROC: 4A033R1 Measurement of Arterial Saturation, Peripheral, Percutaneous Approach (ICD-10-PCS; 2023-03-20)
PROC: 3E033XZ Introduction of Vasopressor into Peripheral Vein, Percutaneous Approach (ICD-10-PCS; 2023-03-20)
PROC: 0T9B70Z Drainage of Bladder with Drainage Device, Via Natural or Artificial Opening (ICD-10-PCS; principal; 2023-03-21)
PROC: 02HV33Z Insertion of Infusion Device into Superior Vena Cava, Percutaneous Approach (ICD-10-PCS; 2023-03-21)
PROC: 0DH67UZ Insertion of Feeding Device into Stomach, Via Natural or Artificial Opening (ICD-10-PCS; 2023-03-21)
PROC: 0BH17EZ Insertion of Endotracheal Airway into Trachea, Via Natural or Artificial Opening (ICD-10-PCS; 2023-03-21)
PROC: 5A1955Z Respiratory Ventilation, Greater than 96 Consecutive Hours (ICD-10-PCS; 2023-03-21)
PROC: 0B110F4 Bypass Trachea to Cutaneous with Tracheostomy Device, Open Approach (ICD-10-PCS; 2023-03-22)
PROC: 30233N1 Transfusion of Nonautologous Red Blood Cells into Peripheral Vein, Percutaneous Approach (ICD-10-PCS; 2023-03-24)
DX: J69.0 Pneumonitis due to inhalation of food and vomit (principal); J96.21 Acute and chronic respiratory failure with hypoxia; G82.50 Quadriplegia, unspecified; G12.21 Amyotrophic lateral sclerosis; D64.9 Anemia, unspecified; Z79.899 Other long term (current) drug therapy; F41.9 Anxiety disorder, unspecified; E10.9 Type 1 diabetes mellitus without complications; I95.9 Hypotension, unspecified; E03.9 Hypothyroidism, unspecified; Z79.4 Long term (current) use of insulin; E87.6 Hypokalemia; Z79.2 Long term (current) use of antibiotics
CPT/HCPCS: 31500; 36415; 36416; 36430; 36556; 36600; 51702; 71045; 71275; 80048; 80053; 80202; 81001; 82805; 83605; 83735; 84443; 84484; 85025; 85610; 85730; 86850; 86900; 86901; 87040; 93005; 94002; 94003; 94640; 96365; 96366; 96372; 99152; 99292; J0171; J0692; J0696; J1650; J2001; J2060; J2250; J2272; J3370; J3370-JW; J3480; J3490; J7050; J7120; J7608; J7611; J7999; P9016; Q9967; S0020; S0028

== ENCOUNTER 2023-04-11 19:44 | Emergency (ER) | payer BC, MEDICARE | END 2023-04-11 22:56 | disposition home or self-care (01) | LOC: ERS 19:44 | DX: S09.90XA Unspecified injury of head, initial encounter (principal); E10.9 Type 1 diabetes mellitus without complications; W06.XXXA Fall from bed, initial encounter | CPT/HCPCS: 70450 ==

== ENCOUNTER 2024-01-13 21:41 | Emergency (ER) | payer BC, MEDICARE ==
[~2024-01-13 21:41] MED LIST changes: +GASTROGRAFIN 30 ML BOT ONE; -Iopamidol-370 76% 500 ML MDV (1 ML CHARGE) ONE
== END 2024-01-14 00:22 | disposition home or self-care (01) ==
LOC: ERS 21:41
DX: K94.23 Gastrostomy malfunction (principal); E10.9 Type 1 diabetes mellitus without complications
CPT/HCPCS: 43762; 74018

== ENCOUNTER 2024-03-12 12:29 | Inpatient (IN) | payer BC, MEDICARE ==
[2024-03-12] MEDS ORDERED: Piperacillin/Tazobactam 4.5 GM VIAL ONE (12:48)
[2024-03-12] MEDS ORDERED: Sodium Chloride 0.9% 100 ML ONE (12:48)
[2024-03-12 13:09] LABS: Actual Bicarbonate (HCO3a) 25.8 mEq/L (22-28); Analyzer IN Cardio ER; Base Excess (BEa) 2.4 mEq/L (-2.0 to +3.0); CO2 Tension 35.6 mmHg (35.0-45.0); Calcium, Ionized (arterial) 1.25 mmol/L (1.12-1.30); Carboxyhemoglobin (COHb) 0.6 gm% (0.0-3.0); Hematocrit-ABG 33 % (36.0-47.0); Hemoglobin (Hb) 11.2 g/dL (12.0-16.0); O2 Tension (PaO2), arterial 326.2 mmHg (80.0-100.0); Potassium - ABG Lab 3.56 mmol/L (3.70-5.30); Puncture Site Right Radial artery; pH, Arterial 7.478 (7.35-7.45)
[2024-03-12 13:27] LABS: %Basophils 0.7 % (0.0-1.0); %Eosinophils 1.1 % (0.0-10.0); %Lymphocytes 50.7 % (21.0-51.0); %Monocytes 7.1 % (0.0-10.0); %Neutrophils 38.3 % (42.0-75.0); Hematocrit 35.2 % (36.0-47.0); Hemoglobin 10.9 g/dL (12.0-16.0); Mean Corpuscular Hemoglobin 29.3 pg (27.0-31.0); Mean Corpuscular Volume 94.6 fL (78.0-98.0); Mean Platelet Volume 11.6 fL (7.4-10.4); Platelet Count 483 10x3/uL (130-400); Red Blood Cell (RBC) Count 3.72 mill/uL (4.20-5.40)
[2024-03-12 13:40] LABS: ALT (SGPT) 22 U/L (8-55); AST (SGOT) 36 U/L (5-34); Albumin 3.7 g/dL (3.5-5.0); Alkaline Phosphatase 101 U/L (40-110); Anion Gap 18 mmol/L (10-20); BUN (Urea Nitrogen) 32 mg/dL (7.0-18.7); Bilirubin, Total 0.4 mg/dL (0.2-1.2); Calcium 9.5 mg/dL (7.8-10.44); Carbon Dioxide 23 mmol/L (22-29); Chloride 99 mmol/L (98-107); Glucose 332 mg/dL (70-105); Potassium 4.7 mmol/L (3.5-5.1); Protein, Total 8.7 g/dL (6.0-8.3); Sodium 135 mmol/L (136-145)
[2024-03-12 13:46] LABS: Bacteria/HPF None Seen HPF (None Seen); Bilirubin Negative (Negative); Blood, Urine Negative (Negative); CAUTI Indications for Culture Alt mental st,lethar; Clarity Clear (Clear); Glucose, Urine (Dipstick) 50 mg/dL (Negative); Ketone, Urine Negative (Negative); Leukocyte Negative Leu/uL (Negative); Nitrite Negative (Negative); Protein, Urine (Dipstick) 30 mg/dL (Neg-Trace); RBC/HPF None Seen HPF (0-3); Specific Gravity, Urine 1.011 (1.002-1.036); Squamous Epithelial 0-3 HPF (0-3); Urobilinogen Normal mg/dL (Less than 2); WBC/HPF 0-3 HPF (0-3)
[2024-03-12 13:54] LABS: Urine Culture Reflex No No
[2024-03-12 14:01] LABS: Calc. Creatinine Clearance 0 mL/min (70-130); Estimated GFR 123
[2024-03-12] MEDS ORDERED: Acetaminophen 650 MG Suppository PR PRN (14:49)
[2024-03-12] MEDS ORDERED: Ondansetron PF 4 MG/2 ML Vial IVP PRN (14:49)
[2024-03-12] MEDS ORDERED: Glucagon 1 MG/ML KIT IM PRN (14:53)
[2024-03-12] MEDS ORDERED: Dextrose 5% in Water 1,000 ML IV PRN (14:53)
[2024-03-12] MEDS ORDERED: Insulin Lispro 100 UNIT/ML 10 ML VIAL SC PRN ×2 (14:53)
[2024-03-12] MEDS ORDERED: Dextrose 50% Abboject 50 ML SYRINGE SLOW IVP PRN (14:53)
[2024-03-12] MEDS ORDERED: Ipratropium/Albuterol 3 ML NEB NEB PRN (15:02)
[2024-03-12] MEDS ORDERED: Ipratropium/Albuterol 3 ML NEB ONE (15:04)
[2024-03-12 17:05] LABS: Lactic Acid 0.93 mmol/L (0.5-2.2)
[2024-03-12 17:28] VITALS: BMI 24.4
[2024-03-12] MEDS: Vancomycin (BATCH) 1.5 GM in Premix 1 BAG IVPB SCH (17:51)
[2024-03-12] MEDS: Communication Order-Pharmacy FS ONE (17:51)
[2024-03-12] MEDS: Lactated Ringer's 1,000 ML IV SCH (17:51)
[2024-03-12] MEDS: Piperacillin/Tazobactam 3.375 GM in Sodium Chloride 0.9% 100 ML IVPB SCH (18:05)
[2024-03-12] MEDS: NOREPINEPHRINE 8 MG/250 ML-D5W 250 ML IVPB SCH (18:53)
[2024-03-12] MEDS: Sodium Chloride 0.9% 1,000 ML IV SCH (18:53)
[2024-03-12] MEDS: Sodium Chloride 0.9% 500 ML IV SCH (18:54)
[2024-03-12] MEDS: NOREPINEPHRINE 8 MG/250 ML-D5W 250 ML ONE (18:55)
[2024-03-12] MEDS: Ipratropium/Albuterol 3 ML NEB NEB SCH (19:14)
[2024-03-12] MEDS: Famotidine/PF 20 mg/2ml Vial SLOW IVP SCH (20:07)
[2024-03-12] MEDS ORDERED: Vancomycin 1 GM in Sodium Chloride 0.9% 250 ML 300 ML IVPB SCH (21:00)
[2024-03-12] MEDS: Vancomycin 1 GM in Premix 1 BAG IVPB SCH (21:33)
[2024-03-12] MEDS: ALPRAZolam 0.25 MG TAB PO PRN (21:52)
[2024-03-13 04:16] LABS: #Basophils 0.09 10x3/uL (0.0-0.2); %Basophils 0.8 % (0.0-1.0); %Eosinophils 0.5 % (0.0-10.0); %Lymphocytes 14.5 % (21.0-51.0); %Monocytes 10.5 % (0.0-10.0); %Neutrophils 73.1 % (42.0-75.0); Hematocrit 27.8 % (36.0-47.0); Hemoglobin 8.8 g/dL (12.0-16.0); Mean Corpuscular HGB CONC 31.7 g/dL (32.0-36.0); Mean Corpuscular Hemoglobin 29.5 pg (27.0-31.0); Mean Corpuscular Volume 93.3 fL (78.0-98.0); Mean Platelet Volume 11.1 fL (7.4-10.4); Platelet Count 355 10x3/uL (130-400); RBC Distribution Width 14.9 % (11.5-14.5); Red Blood Cell (RBC) Count 2.98 mill/uL (4.20-5.40)
[2024-03-13 04:32] LABS: Vancomycin, Random 32.3 ug/mL (See Comment)
[2024-03-13 04:36] LABS: Anion Gap 11 mmol/L (10-20); BUN (Urea Nitrogen) 17 mg/dL (7.0-18.7); Calc. Creatinine Clearance 239 mL/min (70-130); Calcium 8.7 mg/dL (7.8-10.44); Carbon Dioxide 24 mmol/L (22-29); Chloride 108 mmol/L (98-107); Estimated GFR 135; Glucose 140 mg/dL (70-105); Potassium 3.2 mmol/L (3.5-5.1); Sodium 140 mmol/L (136-145)
[2024-03-13] MEDS ORDERED: Electrolyte Replacement Protocol 1 EACH FS SCH (05:30)
[2024-03-13] MEDS: Potassium Bicarbonate/Cit Ac 20 MEQ TAB PER TUBE SCH (06:33)
[2024-03-13] MEDS: Enoxaparin 40 MG (0.4 mL) SYRINGE SC SCH (07:53)
[2024-03-13] MEDS ORDERED: Potassium Chloride 20 MEQ TAB PO SCH (08:00)
[2024-03-13] MEDS: Vancomycin HCl 750 MG in Sodium Chloride 0.9% 250 ML 250 ML IVPB SCH (17:09)
[2024-03-14 05:02] LABS: #Basophils 0.05 10x3/uL (0.0-0.2); %Basophils 0.9 % (0.0-1.0); %Lymphocytes 33.3 % (21.0-51.0); %Monocytes 10.5 % (0.0-10.0); %Neutrophils 51.7 % (42.0-75.0); Hemoglobin 7.8 g/dL (12.0-16.0); Mean Corpuscular HGB CONC 31.2 g/dL (32.0-36.0); Mean Corpuscular Hemoglobin 29.7 pg (27.0-31.0); Mean Corpuscular Volume 95.1 fL (78.0-98.0); Mean Platelet Volume 11.5 fL (7.4-10.4); Platelet Count 234 10x3/uL (130-400); RBC Distribution Width 15.4 % (11.5-14.5); Red Blood Cell (RBC) Count 2.63 mill/uL (4.20-5.40)
[2024-03-14 05:13] LABS: Vancomycin, Random 24.2 ug/mL (See Comment)
[2024-03-14 06:21] LABS: ALT (SGPT) 13 U/L (8-55); AST (SGOT) 12 U/L (5-34); Albumin 2.8 g/dL (3.5-5.0); Alkaline Phosphatase 68 U/L (40-110); Anion Gap 9 mmol/L (10-20); BUN (Urea Nitrogen) 8 mg/dL (7.0-18.7); Bilirubin, Total 0.4 mg/dL (0.2-1.2); Calc. Creatinine Clearance 269 mL/min (70-130); Calcium 8.7 mg/dL (7.8-10.44); Carbon Dioxide 23 mmol/L (22-29); Chloride 111 mmol/L (98-107); Globulin 3.4 g/dL (2.4-3.5); Glucose 111 mg/dL (70-105); Magnesium 1.8 mg/dL (1.6-2.6); Potassium 3.7 mmol/L (3.5-5.1); Protein, Total 6.2 g/dL (6.0-8.3); Sodium 139 mmol/L (136-145)
[2024-03-14] MEDS: Magnesium 2 GM/50 ML(in water) 2 GM in Premix 1 BAG IVPB SCH (10:36)
[2024-03-14] MEDS ORDERED: Simethicone 40 MG/0.6 ML Drop 30 ML BOT PO PRN (12:36)
[2024-03-14] MEDS: Simethicone 40 MG/0.6 ML Drop 30 ML BOT PO SCH (13:08)
[2024-03-14 18:08] VITALS: BP 150/86
[2024-03-14] MEDS: Vancomycin HCl 750 MG in Sodium Chloride 0.9% 250 ML 250 ML IVPB SCH (20:31)
[2024-03-14] MEDS: Vancomycin HCl 750 MG VIAL ONE (20:32)
[2024-03-15] MEDS: diphenhydrAMINE 50 MG/ML VIAL IVP SCH (01:48)
[2024-03-15 04:56] LABS: #Basophils 0.04 10x3/uL (0.0-0.2); %Basophils 0.9 % (0.0-1.0); %Eosinophils 2.6 % (0.0-10.0); %Lymphocytes 37.5 % (21.0-51.0); %Monocytes 9.1 % (0.0-10.0); %Neutrophils 48.7 % (42.0-75.0); Hematocrit 26.4 % (36.0-47.0); Mean Corpuscular HGB CONC 30.3 g/dL (32.0-36.0); Mean Corpuscular Hemoglobin 29.2 pg (27.0-31.0); Mean Corpuscular Volume 96.4 fL (78.0-98.0); Mean Platelet Volume 11.4 fL (7.4-10.4); Platelet Count 221 10x3/uL (130-400); RBC Distribution Width 15.4 % (11.5-14.5); Red Blood Cell (RBC) Count 2.74 mill/uL (4.20-5.40)
[2024-03-15 05:12] LABS: ALT (SGPT) 13 U/L (8-55); AST (SGOT) 14 U/L (5-34); Albumin 2.8 g/dL (3.5-5.0); Alkaline Phosphatase 71 U/L (40-110); Anion Gap 13 mmol/L (10-20); BUN (Urea Nitrogen) 4 mg/dL (7.0-18.7); Bilirubin, Total 0.4 mg/dL (0.2-1.2); Calc. Creatinine Clearance 280 mL/min (70-130); Calcium 8.6 mg/dL (7.8-10.44); Carbon Dioxide 20 mmol/L (22-29); Chloride 111 mmol/L (98-107); Globulin 3.5 g/dL (2.4-3.5); Glucose 101 mg/dL (70-105); Magnesium 2.1 mg/dL (1.6-2.6); Potassium 3.1 mmol/L (3.5-5.1); Protein, Total 6.3 g/dL (6.0-8.3); Sodium 141 mmol/L (136-145)
[2024-03-15] MEDS: ALPRAZolam 0.25 MG TAB PO PRN (06:14)
[2024-03-15] MEDS: Potassium Bicarbonate/Cit Ac 20 MEQ TAB PER TUBE SCH (06:14)
[2024-03-15] MEDS: Sertraline 100 MG TAB PO SCH (08:44)
[2024-03-15] MEDS: Baclofen 10 MG TAB PER TUBE SCH (08:44)
[2024-03-15] MEDS ORDERED: RILUZOLE 50 MG PO SCH (09:00)
[2024-03-15] MEDS: LACTASE 9000 UNIT PO SCH (11:46)
[2024-03-15] MEDS: Acetaminophen 325 MG TAB PO PRN (14:01)
[2024-03-15] MEDS ORDERED: Polyethylene Glycol 3350 17 GM Packet PO PRN (17:10)
[2024-03-16 05:08] LABS: #Basophils 0.04 10x3/uL (0.0-0.2); %Eosinophils 3.2 % (0.0-10.0); %Lymphocytes 43.2 % (21.0-51.0); %Monocytes 11.3 % (0.0-10.0); %Neutrophils 40.6 % (42.0-75.0); Hematocrit 27.1 % (36.0-47.0); Hemoglobin 8.7 g/dL (12.0-16.0); Mean Corpuscular HGB CONC 32.1 g/dL (32.0-36.0); Mean Corpuscular Hemoglobin 29.7 pg (27.0-31.0); Mean Corpuscular Volume 92.5 fL (78.0-98.0); Mean Platelet Volume 11.4 fL (7.4-10.4); Platelet Count 243 10x3/uL (130-400); RBC Distribution Width 15.6 % (11.5-14.5); Red Blood Cell (RBC) Count 2.93 mill/uL (4.20-5.40)
[2024-03-16 06:04] LABS: Anion Gap 11 mmol/L (10-20); BUN (Urea Nitrogen) 5 mg/dL (7.0-18.7); Calc. Creatinine Clearance 294 mL/min (70-130); Calcium 8.8 mg/dL (7.8-10.44); Carbon Dioxide 23 mmol/L (22-29); Chloride 111 mmol/L (98-107); Glucose 121 mg/dL (70-105); Potassium 3.5 mmol/L (3.5-5.1); Sodium 141 mmol/L (136-145)
[2024-03-16] MEDS: Potassium Chloride 20 MEQ TAB PO SCH (08:48)
[2024-03-16 10:55] VITALS: BMI 27.1
[2024-03-17 04:26] LABS: #Basophils 0.03 10x3/uL (0.0-0.2); %Basophils 0.7 % (0.0-1.0); %Eosinophils 3.1 % (0.0-10.0); %Lymphocytes 38.4 % (21.0-51.0); %Monocytes 13.5 % (0.0-10.0); %Neutrophils 43.8 % (42.0-75.0); Hematocrit 27.6 % (36.0-47.0); Hemoglobin 8.9 g/dL (12.0-16.0); Mean Corpuscular HGB CONC 32.2 g/dL (32.0-36.0); Mean Corpuscular Hemoglobin 29.8 pg (27.0-31.0); Mean Corpuscular Volume 92.3 fL (78.0-98.0); Mean Platelet Volume 11.6 fL (7.4-10.4); Platelet Count 238 10x3/uL (130-400); RBC Distribution Width 15.9 % (11.5-14.5); Red Blood Cell (RBC) Count 2.99 mill/uL (4.20-5.40)
[2024-03-17 04:53] LABS: Anion Gap 10 mmol/L (10-20); BUN (Urea Nitrogen) 8 mg/dL (7.0-18.7); Calc. Creatinine Clearance 274 mL/min (70-130); Carbon Dioxide 25 mmol/L (22-29); Chloride 110 mmol/L (98-107); Glucose 138 mg/dL (70-105); Potassium 3.8 mmol/L (3.5-5.1); Sodium 141 mmol/L (136-145)
[2024-03-17 13:36] VITALS: TEMP 98.5
== END 2024-03-17 12:45 | disposition home or self-care (01) | DRG 870 ==
LOC: ERS 12:29 → CCU 15:30 → IMCU/EMU 03-16 12:24
PROVIDERS: ADMIT Family Medicine; ATTEND Family Medicine
PROC: 0T9B70Z Drainage of Bladder with Drainage Device, Via Natural or Artificial Opening (ICD-10-PCS; principal; 2024-03-12)
PROC: 5A1955Z Respiratory Ventilation, Greater than 96 Consecutive Hours (ICD-10-PCS; 2024-03-12)
PROC: 4A033R1 Measurement of Arterial Saturation, Peripheral, Percutaneous Approach (ICD-10-PCS; 2024-03-12)
PROC: 3E03329 Introduction of Other Anti-infective into Peripheral Vein, Percutaneous Approach (ICD-10-PCS; 2024-03-12)
PROC: 3E033XZ Introduction of Vasopressor into Peripheral Vein, Percutaneous Approach (ICD-10-PCS; 2024-03-12)
DX: A41.9 Sepsis, unspecified organism (principal); G82.50 Quadriplegia, unspecified; J18.9 Pneumonia, unspecified organism; J96.21 Acute and chronic respiratory failure with hypoxia; R65.21 Severe sepsis with septic shock; G12.21 Amyotrophic lateral sclerosis; T68.XXXA Hypothermia, initial encounter; E03.9 Hypothyroidism, unspecified; Z98.890 Other specified postprocedural states; F41.9 Anxiety disorder, unspecified; F32.A Depression, unspecified; Z79.899 Other long term (current) drug therapy; E87.6 Hypokalemia; Z51.5 Encounter for palliative care; E10.65 Type 1 diabetes mellitus with hyperglycemia
CPT/HCPCS: 36415; 36416; 36600; 51702; 71045; 80048; 80053; 80202; 81001; 82805; 83605; 83735; 84145; 84443; 85025; 87040; 87081; 87086; 87428; 94002; 94003; 94640; 94760; 96365; 96367; 99292; J1200; J1650; J2543; J3370; J3475; J3490; J7030; J7050; J7620

== ENCOUNTER 2024-06-25 16:57 | Emergency (ER) | payer BC, MEDICARE | END 2024-06-25 18:56 | disposition home or self-care (01) | LOC: ERS 16:57 | DX: Z43.1 Encounter for attention to gastrostomy (principal); E10.9 Type 1 diabetes mellitus without complications; Z79.899 Other long term (current) drug therapy | CPT/HCPCS: 43762; 74018 ==